=== PATIENT | female | born 1960 | race Caucasian/White ===

== ENCOUNTER 2018-03-07 13:29 | Inpatient (IN) ==
[~2018-03-07 13:29] MED LIST: Pantoprazole 40 MG VIAL IVP SCH
[2018-03-07] MEDS ORDERED: 0.9 % Sodium Chloride 1,000 ML IVC ONE (13:56)
--- NOTE | 2018-03-07 14:08 | Emergency Department Note ---
Disposition Clinical Impression: Leucocytosis, Diarrhea, MARTY (acute kidney injury), Lactic acidosis, Colitis Disposition: Admitted As Inpatient Condition: Fair General Adult HPI - General Chief complaint: ED Nausea/Vomiting/Diarrhea Stated complaint: FLu symptoms Time Seen by Provider: 03/07/18 13:39 Source: patient, family - History of Present Illness Pain Scale: 8 - Related Data Home Medications Medication Instructions Recorded Confirmed Aspirin Enteric Coated [Aspirin EC] 81 mg PO DAILY 03/07/18 03/07/18 BuPROPion SR (12 HR) [Wellbutrin 100 mg PO BID 03/07/18 03/07/18 SR] Clopidogrel [Plavix] 75 mg PO DAILY 03/07/18 03/07/18 Lisinopril [Zestril] 5 mg PO DAILY 03/07/18 03/07/18 Lovastatin [Mevacor] 20 mg PO HS 03/07/18 03/07/18 Omeprazole [PriLOSEC] 20 mg PO BIDAC 03/07/18 03/07/18 PARoxetine HCl [Paroxetine HCl] 10 mg PO DAILY 03/07/18 03/07/18 hydroCHLOROthiazide 25 mg PO DAILY 03/07/18 03/07/18 [Hydrochlorothiazide] Allergies Allergy/AdvReac Type Severity Reaction Status Date / Time No Known Allergies Allergy Verified 03/07/18 15:17 Past Medical History - Past Medical History Medical history: Reports: CVA, hyperlipidemia, hypertension Psychiatric history: Reports: anxiety, depression - Social History Smoking Status: Current every day smoker Smokeless Tobacco Status: No Alcohol use: Reports: rarely Drug use: Reports: none Physical Exam - General General appearance: alert Course Vital Signs Temperature 98.8 F 03/07/18 13:32 Pulse Rate 133 03/07/18 13:32 Respiratory Rate 15 03/07/18 13:32 Blood Pressure 85/58 03/07/18 13:32 O2 Sat by Pulse Oximetry 93 03/07/18 13:32 Temperature 98.9 F 03/07/18 20:50 Pulse Rate 115 03/07/18 20:50 Respiratory Rate 26 03/07/18 20:50 Blood Pressure 129/69 03/07/18 20:50 O2 Sat by Pulse Oximetry 94 03/07/18 20:50 Oxygen Delivery Oxygen Delivery Room Air Medical Decision Making - Lab Data Result diagrams: 03/07/18 14:00 03/07/18 14:00 Lab Results 03/07/18 03/07/18 03/07/18 Range/Units 14:00 14:00 14:00 WBC 25.8 H (4.3-11.1) K/mcL RBC 4.66 (3.82-4.97) M/mcL Hgb 11.4 L (11.5-15.4) g/dL Hct 35.1 L (35.3-44.9) % MCV 75.3 L (83.0-100.0) fL MCH 24.5 L (28.0-33.3) pg MCHC 32.5 (31.6-35.5) g/dL RDW 16.9 H (11.5-14.5) % Plt Count 356 (140-400) K/mcL MPV 10.9 (9.4-12.4) fL Seg Neutrophils % 70.0 % Band Neutrophils % 18.0 H (0-4) % Lymphocytes % 6.0 % Monocytes % 6.0 % Neutrophils # 22.7 H (1.6-8.9) K/mcL Lymphocytes # 1.6 (0.6-4.6) K/mcL Monocytes # 1.6 H (0.0-1.3) K/mcL Reactive Lymphocytes Present A (Not Present) Platelet Estimate Normal (Normal) PT (9.4-12.1) Seconds INR APTT (26.0-36.0) Seconds Sodium 131 L (136-145) mEq/L Potassium 3.7 (3.5-5.1) mEq/L Chloride 100 (98-107) mEq/L Carbon Dioxide 20 L (23-29) mEq/L BUN 18 (6-20) mg/dL Creatinine 1.67 H (0.60-1.20) mg/dL Est GFR ( Amer) 38 L (> 60) Est GFR (Non-Af Amer) 32 L (> 60) BUN/Creatinine Ratio 11 (6-26) Glucose 297 H (70-105) mg/dL Calculated Osmolality 285 (280-300) Lactic Acid 3.7 H (0.5-2.2) mmol/L Calcium 9.2 (8.6-10.3) mg/dL Phosphorus (2.7-4.5) mg/dL Magnesium (1.6-2.6) mg/dL Total Bilirubin 0.5 (0.3-1.0) mg/dL AST 33 (13-39) Units/L ALT 42 (7-52) Units/L Alkaline Phosphatase 112 H (34-104) Units/L Troponin I (< 0.04) ng/mL Serum Total Protein 6.2 L (6.4-8.9) g/dL Albumin 3.9 (3.5-5.7) g/dL Globulin 2.3 L (2.4-3.5) g/dL Albumin/Globulin Ratio 1.7 (1.1-2.2) Lipase 18 (11-82) Units/L Urine Color (Yellow) Urine Clarity (Clear) Urine pH (5.0-8.0) pH Units Ur Specific [place] (1.010-1.025) Urine Protein (Neg-Trace) mg/dL Urine Glucose (UA) (Normal) mg/dL Urine Ketones (Negative) mg/dL Urine Blood (Negative) Urine Nitrite (Negative) Urine Bilirubin (Negative) Urine Urobilinogen (Normal) mg/dL Ur Leukocyte Esterase (Negative) Urine Microscopic RBC (0-3) per hpf Urine Microscopic WBC (0-3) per hpf Ur Squamous Epith Cells (None-Few) per lpf Urine Bacteria (None-Few) per hpf Ur Culture Indicated? (NO) 03/07/18 03/07/18 03/07/18 Range/Units 14:00 15:26 15:26 WBC (4.3-11.1) K/mcL RBC (3.82-4.97) M/mcL Hgb (11.5-15.4) g/dL Hct (35.3-44.9) % MCV (83.0-100.0) fL MCH (28.0-33.3) pg MCHC (31.6-35.5) g/dL RDW (11.5-14.5) % Plt Count (140-400) K/mcL MPV (9.4-12.4) fL Seg Neutrophils % % Band Neutrophils % (0-4) % Lymphocytes % % Monocytes % % Neutrophils # (1.6-8.9) K/mcL Lymphocytes # (0.6-4.6) K/mcL Monocytes # (0.0-1.3) K/mcL Reactive Lymphocytes (Not Present) Platelet Estimate (Normal) PT 13.0 H (9.4-12.1) Seconds INR 1.2 APTT 30.2 (26.0-36.0) Seconds Sodium (136-145) mEq/L Potassium (3.5-5.1) mEq/L Chloride (98-107) mEq/L Carbon Dioxide (23-29) mEq/L BUN (6-20) mg/dL Creatinine (0.60-1.20) mg/dL Est GFR ( Amer) (> 60) Est GFR (Non-Af Amer) (> 60) BUN/Creatinine Ratio (6-26) Glucose (70-105) mg/dL Calculated Osmolality (280-300) Lactic Acid (0.5-2.2) mmol/L Calcium (8.6-10.3) mg/dL Phosphorus 3.3 (2.7-4.5) mg/dL Magnesium 1.3 L (1.6-2.6) mg/dL Total Bilirubin (0.3-1.0) mg/dL AST (13-39) Units/L ALT (7-52) Units/L Alkaline Phosphatase (34-104) Units/L Troponin I < 0.03 (< 0.04) ng/mL Serum Total Protein (6.4-8.9) g/dL Albumin (3.5-5.7) g/dL Globulin (2.4-3.5) g/dL Albumin/Globulin Ratio (1.1-2.2) Lipase (11-82) Units/L Urine Color (Yellow) Urine Clarity (Clear) Urine pH (5.0-8.0) pH Units Ur Specific [place] (1.010-1.025) Urine Protein (Neg-Trace) mg/dL Urine Glucose (UA) (Normal) mg/dL Urine Ketones (Negative) mg/dL Urine Blood (Negative) Urine Nitrite (Negative) Urine Bilirubin (Negative) Urine Urobilinogen (Normal) mg/dL Ur Leukocyte Esterase (Negative) Urine Microscopic RBC (0-3) per hpf Urine Microscopic WBC (0-3) per hpf Ur Squamous Epith Cells (None-Few) per lpf Urine Bacteria (None-Few) per hpf Ur Culture Indicated? (NO) 03/07/18 03/07/18 Range/Units 17:40 18:09 WBC (4.3-11.1) K/mcL RBC (3.82-4.97) M/mcL Hgb (11.5-15.4) g/dL Hct (35.3-44.9) % MCV (83.0-100.0) fL MCH (28.0-33.3) pg MCHC (31.6-35.5) g/dL RDW (11.5-14.5) % Plt Count (140-400) K/mcL MPV (9.4-12.4) fL Seg Neutrophils % % Band Neutrophils % (0-4) % Lymphocytes % % Monocytes % % Neutrophils # (1.6-8.9) K/mcL Lymphocytes # (0.6-4.6) K/mcL Monocytes # (0.0-1.3) K/mcL Reactive Lymphocytes (Not Present) Platelet Estimate (Normal) PT (9.4-12.1) Seconds INR APTT (26.0-36.0) Seconds Sodium (136-145) mEq/L Potassium (3.5-5.1) mEq/L Chloride (98-107) mEq/L Carbon Dioxide (23-29) mEq/L BUN (6-20) mg/dL Creatinine (0.60-1.20) mg/dL Est GFR ( Amer) (> 60) Est GFR (Non-Af Amer) (> 60) BUN/Creatinine Ratio (6-26) Glucose (70-105) mg/dL Calculated Osmolality (280-300) Lactic Acid 2.4 H (0.5-2.2) mmol/L Calcium (8.6-10.3) mg/dL Phosphorus (2.7-4.5) mg/dL Magnesium (1.6-2.6) mg/dL Total Bilirubin (0.3-1.0) mg/dL AST (13-39) Units/L ALT (7-52) Units/L Alkaline Phosphatase (34-104) Units/L Troponin I (< 0.04) ng/mL Serum Total Protein (6.4-8.9) g/dL Albumin (3.5-5.7) g/dL Globulin (2.4-3.5) g/dL Albumin/Globulin Ratio (1.1-2.2) Lipase (11-82) Units/L Urine Color Dark Yellow (Yellow) Urine Clarity Clear (Clear) Urine pH 5.5 (5.0-8.0) pH Units Ur Specific [place] 1.016 (1.010-1.025) Urine Protein Trace (Neg-Trace) mg/dL Urine Glucose (UA) 100 H (Normal) mg/dL Urine Ketones Negative (Negative) mg/dL Urine Blood Negative (Negative) Urine Nitrite Negative (Negative) Urine Bilirubin Negative (Negative) Urine Urobilinogen Normal (Normal) mg/dL Ur Leukocyte Esterase Negative (Negative) Urine Microscopic RBC 0-3 (0-3) per hpf Urine Microscopic WBC 3-5 H (0-3) per hpf Ur Squamous Epith Cells Many H (None-Few) per lpf Urine Bacteria None Seen (None-Few) per hpf Ur Culture Indicated? NO (NO) Critical Care Time Critical Care Time: Yes Total Critical Care Time: 45 Attestation: Critical care performed: Time is exclusive of separately billable procedures. Time includes: direct patient care, patient reassessment, coordination of patient care, interpretation of data (laboratory data, radiology data, and respiratory data), review of patient's medical records, medical consultation and documentation of patient care. Procedures included in critical care time: Procedures excluded from critical care time: Attestation Statement - Attestation Attestation: I examined this patient and my medical decision-making was reviewed with the Resident Physician. I agree with the documented findings, disposition and treatment plan as described except to the extent set forth below. Patient presents to the ED with a chief complaint of not feeling well. Diarrhea. Cough productive of clear phlegm. He vomited once this a.m. Patient states she has not done well since she had a stroke one year ago. She is unable to work. No recent travel. No new exposures. On examination she is hypertensive. Tachycardic. Abdomen soft nontender. Lungs diminished but clear. She satting 91% on room air. Plan. IV hydration. Sepsis protocol. Patient placed on 2 L nasal cannula. Patient will be admitted. Patient identified as likely sepsis at 1405. Patient's wish workup shows elevated white blood cell count. She was started on broad-spectrum antibiotics suspecting a respiratory source. Chest x-ray did not show an obvious infiltrate. We did a CT chest abdomen pelvis. She does have a mild colitis. Patient received 3 L of normal saline. Blood pressures improved. She feels better. She is admitted to medicine. Chest X-Ray 03/07/18 13:59 IMPRESSION: Subtle irregular nodular density of the left upper lobe is partially obscured by overlying osseous structures. Cannot exclude underlying nodule or evolving infiltrate in this location. CT correlation recommended. D/ / 03/07/2018 16:48:42 Samir Prince MD / [place] Interpreting Provider: Samir Prince MD Abdomen/Pelvis CT 03/07/18 16:38 IMPRESSION: 1. No acute abnormality of the chest. 2. Severe hepatic steatosis. 3. Small bilateral calculi. No obstructive uropathy. 4. Scattered colonic diverticulosis with mild wall thickening of the transverse colon and questionable areas of minimal inflammation along the left colon. Mild colitis cannot be excluded. 5. Small fat-containing left epigastric hernia with mild inflammation. D/ / Dallas Cheema MD / Dallas Cheema MD Interpreting Provider: Dallas Cheema MD Chest CT 03/07/18 16:38
[2018-03-07] MEDS ORDERED: Ondansetron 4 MG/2 ML VIAL IVP ONE (14:17)
[2018-03-07 14:18] LABS: Hematocrit 35.1 % (35.3-44.9); Hemoglobin 11.4 g/dL (11.5-15.4); Mean Corpuscular HGB Conc 32.5 g/dL (31.6-35.5); Mean Corpuscular Hemoglobin 24.5 pg (28.0-33.3); Mean Corpuscular Volume 75.3 fL (83.0-100.0); Mean Platelet Volume 10.9 fL (9.4-12.4); Platelet Count 356 K/mcL (140-400); Red Blood Count 4.66 M/mcL (3.82-4.97); Red Cell Distribution Width 16.9 % (11.5-14.5)
--- NOTE | 2018-03-07 14:20 | Emergency Department Note ---
Disposition Clinical Impression: MARTY (acute kidney injury), Lactic acidosis, Colitis Leucocytosis Qualifiers: Leukocytosis type: unspecified Qualified Code(s): D72.829 - Elevated white blood cell count, unspecified Diarrhea Qualifiers: Diarrhea type: unspecified type Qualified Code(s): R19.7 - Diarrhea, unspecified Disposition: Admitted As Inpatient Condition: Fair Time of Disposition: 19:36 General Adult HPI - General Chief complaint: ED Nausea/Vomiting/Diarrhea Stated complaint: FLu symptoms Time Seen by Provider: 03/07/18 13:39 Source: patient, family Limitations: no limitations Nursing Notes Reviewed: Yes Vital Signs Reviewed: Yes - History of Present Illness HPI Narrative: Patient is a 57-year-old female presenting with nausea, vomiting, diarrhea with generalized weakness. Past medical history of COPD, hypertension, hyperlipidemia and CVA. Patient states that she began having symptoms 3 days ago with nausea, diarrhea generalized aches and chills. She states this is progressively gotten worse over the past 3 days with continued diarrhea and nausea. She states that this morning she had one episode of vomiting, nonbilious and non-bloody. She states that she has had no hematochezia or melena. She states that she has had decreased oral intake and has had anorexia over the past few days. Per her in the room, patient states that she has been feeling warm over the past few days but has not taken temperature. Patient has had no recent antibiotic use, no recent illness. She does have chronic cough, which has continued, no change in sputum production. No urinary symptoms. She denies any abdominal pain today. She denies chest pain or short of breath. Pain Scale: 8 - Related Data Home Medications Medication Instructions Recorded Confirmed Aspirin Enteric Coated [Aspirin EC] 81 mg PO DAILY 03/07/18 03/07/18 BuPROPion SR (12 HR) [Wellbutrin 100 mg PO BID 03/07/18 03/07/18 SR] Clopidogrel [Plavix] 75 mg PO DAILY 03/07/18 03/07/18 Lisinopril [Zestril] 5 mg PO DAILY 03/07/18 03/07/18 Lovastatin [Mevacor] 20 mg PO HS 03/07/18 03/07/18 Omeprazole [PriLOSEC] 20 mg PO BIDAC 03/07/18 03/07/18 PARoxetine HCl [Paroxetine HCl] 10 mg PO DAILY 03/07/18 03/07/18 hydroCHLOROthiazide 25 mg PO DAILY 03/07/18 03/07/18 [Hydrochlorothiazide] Allergies Allergy/AdvReac Type Severity Reaction Status Date / Time No Known Allergies Allergy Verified 03/07/18 15:17 All systems ED: reviewed and negative except as stated. Review of Systems: As Per HPI Constitutional: Reports: chills. Denies: fever, weakness ENT ED: Denies: congestion Cardiovascular: Denies: chest pain, palpitations, dyspnea on exertion, syncope Respiratory: Reports: cough. Denies: dyspnea, wheezes, hemoptysis, sputum production Gastrointestinal: Reports: nausea, vomiting, diarrhea. Denies: abdominal pain, constipation, hematemesis, melena, hematochezia Genitourinary: Denies: urgency, dysuria, frequency, hematuria Musculoskeletal: Denies: back pain Integumentary: Denies: rash Neurological: Reports: weakness. Denies: headache, numbness, paresthesias, confusion Endocrine: Reports: fatigue Past Medical History - Past Medical History Medical history: Reports: CVA, hyperlipidemia, hypertension Psychiatric history: Reports: anxiety, depression - Social History Smoking Status: Current every day smoker Smokeless Tobacco Status: No Alcohol use: Reports: rarely Drug use: Reports: none Physical Exam - General Limitations: no limitations General appearance: alert - Head Head exam: atraumatic, normocephalic - Eye Eye exam: Present: normal appearance, PERRL, EOMI, other (Left eye efferent defect) - ENT ENT exam: normal exam, normal oropharynx, mucous membranes moist - Neck Neck exam: Present: normal inspection, full ROM, trachea midline - Chest Chest inspection: Present: normal inspection, symmetric chest wall rise - Respiratory Respiratory exam: Present: normal lung sounds bilaterally - Cardiovascular Cardiovascular exam: Present: normal rhythm, tachycardia - Abdominal Exam Abdominal exam: Present: soft, Non-Tender. Absent: tenderness, distention, guarding, rebound, rigidity - Extremities Exam Extremities exam: Present: normal inspection, full ROM. Absent: tenderness, pedal edema - Expanded Lower Extremity Exam Hip/Pelvis exam: Present: normal inspection, full ROM Neurovascular/Tendon exam: Absent: motor deficit, sensory deficit, tendon deficit - Back Exam Back exam: Present: normal inspection, full ROM. Absent: tenderness - Neurological Exam Neurological exam: Present: alert, oriented X3, CN II-XII intact - Psychiatric Psychiatric exam: Present: normal affect, normal mood Course Course Narrative: Patient is a 57-year-old female presenting with weakness, nausea, vomiting and diarrhea. We will order CBC, BMP, troponin, EKG, chest x-ray, urinalysis, influenza swab at this point in time. We will give Zofran for nausea at this time. Denies pain at this time. We will obtain blood cultures. Vital Signs Temperature 98.8 F 03/07/18 13:32 Pulse Rate 133 03/07/18 13:32 Respiratory Rate 15 03/07/18 13:32 Blood Pressure 85/58 03/07/18 13:32 O2 Sat by Pulse Oximetry 93 03/07/18 13:32 Temperature 98.9 F 03/07/18 20:50 Pulse Rate 115 03/07/18 20:50 Respiratory Rate 26 03/07/18 20:50 Blood Pressure 129/69 03/07/18 20:50 O2 Sat by Pulse Oximetry 94 03/07/18 20:50 Oxygen Delivery Oxygen Delivery Room Air Medical Decision Making - [facility] Narrative Medical decision making narrative: Patient is a 57-year-old female presenting with nausea, vomiting and diarrhea. Patient states symptoms began 3 days ago and previously gotten worse, has had multiple episodes of nonbilious nonbloody diarrhea. Had one episode of vomiting earlier today. Continues to have nausea. No abdominal pain. No chest pain or shortness of breath. Patient was seen and examined on arrival. Patient is tachycardic with heart rate in the 120s, pulse ox is 91%, was placed on 2 L nasal cannula, repeat pulse ox was 98%. Blood pressure is 89/70 at bedside, we will go ahead and start 1 L of fluids at this time. Patient blood work did come back showing elevated white count it leukocytosis of 25.6 with a left shift, hyponatremic at 131, lactic acid was elevated at 3.7. She also had elevated creatinine 1.67 history of kidney disease. At this point in time, did start patient on sepsis protocol with increased fluidsat rate of 30 cc/kg, blood cultures were ordered. Patient was started on broad-spectrum antibiotics vancomycin, azithromycin and Zosyn. Influenza swab was negative. Chest x-ray showed stable right middle lobe nodule, however cannot rule out opacity. CT of the chest, abdomen and pelvis were ordered. CT of the abdomen showed no acute abdomen around the chest, did show severe hepatic steatosis, unchanged from previous, there are small bilateral calculi. Nonobstructive. There is also note of scattered clonic diverticulosis with mild wall thickening of the transverse colon initial minimal inflammation along the left colon possible mild colitis. Also small fat-containing left epigastric hernia but not employed inflammation. Did discuss these results with the patient. Urinalysis is negative for acute infection. Discussed the findings and disposition with the patient. At this point in time, we will admit patient for further recommendations and evaluation. With leukocytosis, MARTY and colitis. At this point in time, patient has been started on sepsis protocol fluids, broad- spectrum antibiotics and blood cultures 2 have been drawn. Upon further evaluation and, conversation with hospitalist, patient has been requested to be admitted to the ICU for further evaluation. Did request Flagyl 500 at this time. There was mention of possible central line placement in the emergency department. This was discussed with my attending. Patient was reevaluated, blood pressure of 88/70s that was input into the computer was incorrect, did discuss with nursing. Repeat blood pressure while in the room was 115/57. Patient is currently finished with 3 L currently starting on her fourth liter. In discussion with my attending, as well as reevaluating the patient, do not feel as if the patient needs central line placement or ICU placement at this point in time. Patient continuing to respond positively to fluid resuscitation. At this point in time, we will hospitalist to discuss this further. He is in agreement and understanding. At this point in time patient has been admitted and will be placed in ICU at 1937 . - Medical Records Medical records reviewed: Yes I reviewed the patient's medical records. - Lab Data Lab results reviewed: Yes I reviewed the patient's lab results. Result diagrams: 03/07/18 14:00 03/07/18 14:00 Lab Results 03/07/18 03/07/18 03/07/18 Range/Units 14:00 14:00 14:00 WBC 25.8 H (4.3-11.1) K/mcL RBC 4.66 (3.82-4.97) M/mcL Hgb 11.4 L (11.5-15.4) g/dL Hct 35.1 L (35.3-44.9) % MCV 75.3 L (83.0-100.0) fL MCH 24.5 L (28.0-33.3) pg MCHC 32.5 (31.6-35.5) g/dL RDW 16.9 H (11.5-14.5) % Plt Count 356 (140-400) K/mcL MPV 10.9 (9.4-12.4) fL Seg Neutrophils % 70.0 % Band Neutrophils % 18.0 H (0-4) % Lymphocytes % 6.0 % Monocytes % 6.0 % Neutrophils # 22.7 H (1.6-8.9) K/mcL Lymphocytes # 1.6 (0.6-4.6) K/mcL Monocytes # 1.6 H (0.0-1.3) K/mcL Reactive Lymphocytes Present A (Not Present) Platelet Estimate Normal (Normal) PT (9.4-12.1) Seconds INR APTT (26.0-36.0) Seconds Sodium 131 L (136-145) mEq/L Potassium 3.7 (3.5-5.1) mEq/L Chloride 100 (98-107) mEq/L Carbon Dioxide 20 L (23-29) mEq/L BUN 18 (6-20) mg/dL Creatinine 1.67 H (0.60-1.20) mg/dL Est GFR ( Amer) 38 L (> 60) Est GFR (Non-Af Amer) 32 L (> 60) BUN/Creatinine Ratio 11 (6-26) Glucose 297 H (70-105) mg/dL Est Mean Plasma Glucose mg/dl Hemoglobin A1c ( - 5.6) % Calculated Osmolality 285 (280-300) Lactic Acid 3.7 H (0.5-2.2) mmol/L Calcium 9.2 (8.6-10.3) mg/dL Phosphorus (2.7-4.5) mg/dL Magnesium (1.6-2.6) mg/dL Total Bilirubin 0.5 (0.3-1.0) mg/dL AST 33 (13-39) Units/L ALT 42 (7-52) Units/L Alkaline Phosphatase 112 H (34-104) Units/L Troponin I (< 0.04) ng/mL Serum Total Protein 6.2 L (6.4-8.9) g/dL Albumin 3.9 (3.5-5.7) g/dL Globulin 2.3 L (2.4-3.5) g/dL Albumin/Globulin Ratio 1.7 (1.1-2.2) Lipase 18 (11-82) Units/L Urine Color (Yellow) Urine Clarity (Clear) Urine pH (5.0-8.0) pH Units Ur Specific Gillett (1.010-1.025) Urine Protein (Neg-Trace) mg/dL Urine Glucose (UA) (Normal) mg/dL Urine Ketones (Negative) mg/dL Urine Blood (Negative) Urine Nitrite (Negative) Urine Bilirubin (Negative) Urine Urobilinogen (Normal) mg/dL Ur Leukocyte Esterase (Negative) Urine Microscopic RBC (0-3) per hpf Urine Microscopic WBC (0-3) per hpf Ur Squamous Epith Cells (None-Few) per lpf Urine Bacteria (None-Few) per hpf Ur Culture Indicated? (NO) 03/07/18 03/07/18 03/07/18 Range/Units 14:00 14:00 15:26 WBC (4.3-11.1) K/mcL RBC (3.82-4.97) M/mcL Hgb (11.5-15.4) g/dL Hct (35.3-44.9) % MCV (83.0-100.0) fL MCH (28.0-33.3) pg MCHC (31.6-35.5) g/dL RDW (11.5-14.5) % Plt Count (140-400) K/mcL MPV (9.4-12.4) fL Seg Neutrophils % % Band Neutrophils % (0-4) % Lymphocytes % % Monocytes % % Neutrophils # (1.6-8.9) K/mcL Lymphocytes # (0.6-4.6) K/mcL Monocytes # (0.0-1.3) K/mcL Reactive Lymphocytes (Not Present) Platelet Estimate (Normal) PT 13.0 H (9.4-12.1) Seconds INR 1.2 APTT 30.2 (26.0-36.0) Seconds Sodium (136-145) mEq/L Potassium (3.5-5.1) mEq/L Chloride (98-107) mEq/L Carbon Dioxide (23-29) mEq/L BUN (6-20) mg/dL Creatinine (0.60-1.20) mg/dL Est GFR ( Amer) (> 60) Est GFR (Non-Af Amer) (> 60) BUN/Creatinine Ratio (6-26) Glucose (70-105) mg/dL Est Mean Plasma Glucose 206 mg/dl Hemoglobin A1c 8.8 H ( - 5.6) % Calculated Osmolality (280-300) Lactic Acid (0.5-2.2) mmol/L Calcium (8.6-10.3) mg/dL Phosphorus (2.7-4.5) mg/dL Magnesium (1.6-2.6) mg/dL Total Bilirubin (0.3-1.0) mg/dL AST (13-39) Units/L ALT (7-52) Units/L Alkaline Phosphatase (34-104) Units/L Troponin I < 0.03 (< 0.04) ng/mL Serum Total Protein (6.4-8.9) g/dL Albumin (3.5-5.7) g/dL Globulin (2.4-3.5) g/dL Albumin/Globulin Ratio (1.1-2.2) Lipase (11-82) Units/L Urine Color (Yellow) Urine Clarity (Clear) Urine pH (5.0-8.0) pH Units Ur Specific Gillett (1.010-1.025) Urine Protein (Neg-Trace) mg/dL Urine Glucose (UA) (Normal) mg/dL Urine Ketones (Negative) mg/dL Urine Blood (Negative) Urine Nitrite (Negative) Urine Bilirubin (Negative) Urine Urobilinogen (Normal) mg/dL Ur Leukocyte Esterase (Negative) Urine Microscopic RBC (0-3) per hpf Urine Microscopic WBC (0-3) per hpf Ur Squamous Epith Cells (None-Few) per lpf Urine Bacteria (None-Few) per hpf Ur Culture Indicated? (NO) 03/07/18 03/07/18 03/07/18 Range/Units 15:26 17:40 18:09 WBC (4.3-11.1) K/mcL RBC (3.82-4.97) M/mcL Hgb (11.5-15.4) g/dL Hct (35.3-44.9) % MCV (83.0-100.0) fL MCH (28.0-33.3) pg MCHC (31.6-35.5) g/dL RDW (11.5-14.5) % Plt Count (140-400) K/mcL MPV (9.4-12.4) fL Seg Neutrophils % % Band Neutrophils % (0-4) % Lymphocytes % % Monocytes % % Neutrophils # (1.6-8.9) K/mcL Lymphocytes # (0.6-4.6) K/mcL Monocytes # (0.0-1.3) K/mcL Reactive Lymphocytes (Not Present) Platelet Estimate (Normal) PT (9.4-12.1) Seconds INR APTT (26.0-36.0) Seconds Sodium (136-145) mEq/L Potassium (3.5-5.1) mEq/L Chloride (98-107) mEq/L Carbon Dioxide (23-29) mEq/L BUN (6-20) mg/dL Creatinine (0.60-1.20) mg/dL Est GFR ( Amer) (> 60) Est GFR (Non-Af Amer) (> 60) BUN/Creatinine Ratio (6-26) Glucose (70-105) mg/dL Est Mean Plasma Glucose mg/dl Hemoglobin A1c ( - 5.6) % Calculated Osmolality (280-300) Lactic Acid 2.4 H (0.5-2.2) mmol/L Calcium (8.6-10.3) mg/dL Phosphorus 3.3 (2.7-4.5) mg/dL Magnesium 1.3 L (1.6-2.6) mg/dL Total Bilirubin (0.3-1.0) mg/dL AST (13-39) Units/L ALT (7-52) Units/L Alkaline Phosphatase (34-104) Units/L Troponin I (< 0.04) ng/mL Serum Total Protein (6.4-8.9) g/dL Albumin (3.5-5.7) g/dL Globulin (2.4-3.5) g/dL Albumin/Globulin Ratio (1.1-2.2) Lipase (11-82) Units/L Urine Color Dark Yellow (Yellow) Urine Clarity Clear (Clear) Urine pH 5.5 (5.0-8.0) pH Units Ur Specific Gillett 1.016 (1.010-1.025) Urine Protein Trace (Neg-Trace) mg/dL Urine Glucose (UA) 100 H (Normal) mg/dL Urine Ketones Negative (Negative) mg/dL Urine Blood Negative (Negative) Urine Nitrite Negative (Negative) Urine Bilirubin Negative (Negative) Urine Urobilinogen Normal (Normal) mg/dL Ur Leukocyte Esterase Negative (Negative) Urine Microscopic RBC 0-3 (0-3) per hpf Urine Microscopic WBC 3-5 H (0-3) per hpf Ur Squamous Epith Cells Many H (None-Few) per lpf Urine Bacteria None Seen (None-Few) per hpf Ur Culture Indicated? NO (NO) - Radiology Data Radiology results reviewed: Yes I reviewed the patient's radiology results. Chest X-Ray 03/07/18 13:59 IMPRESSION: Subtle irregular nodular density of the left upper lobe is partially obscured by overlying osseous structures. Cannot exclude underlying nodule or evolving infiltrate in this location. CT correlation recommended. D/ / 03/07/2018 16:48:42 Samir Prince MD / [facility] Interpreting Provider: Samir Prince MD Abdomen/Pelvis CT 03/07/18 16:38 IMPRESSION: 1. No acute abnormality of the chest. 2. Severe hepatic steatosis. 3. Small bilateral calculi. No obstructive uropathy. 4. Scattered colonic diverticulosis with mild wall thickening of the transverse colon and questionable areas of minimal inflammation along the left colon. Mild colitis cannot be excluded. 5. Small fat-containing left epigastric hernia with mild inflammation. D/ / Dallas Cheema MD / Dallas Cheema MD Interpreting Provider: Dallas Cheema MD Chest CT 03/07/18 16:38 IMPRESSION: 1. No acute abnormality of the chest. 2. Severe hepatic steatosis. 3. Small bilateral calculi. No obstructive uropathy. 4. Scattered colonic diverticulosis with mild wall thickening of the transverse colon and questionable areas of minimal inflammation along the left colon. Mild colitis cannot be excluded. 5. Small fat-containing left epigastric hernia with mild inflammation. D/ / Dallas Cheema MD / Dallas Cheema MD Interpreting Provider: Dallas Cheema MD Bo - Bo Situation: Demographics, MOA Background: Presenting Complaint, Relevant PMH, Meds, & Allergies Assessment: Vital Signs, Course and respsone to treatment, Exam Concerns, Patient/Family Expectation, Pertinant Lab Results, Outstanding Labs Recommendation: Barrier(s) to disposition, Recommendation based on pending studies, treatments, or consults Bo Report Given to: Hospitalist Bo Repor Time: 19:30 (accepted)
[2018-03-07 14:31] LABS: Albumin 3.9 g/dL (3.5-5.7); Albumin/Globulin Ratio 1.7 (1.1-2.2); Bilirubin,Total 0.5 mg/dL (0.3-1.0); Calcium 9.2 mg/dL (8.6-10.3); Globulin 2.3 g/dL (2.4-3.5); Potassium 3.7 mEq/L (3.5-5.1); Total Protein 6.2 g/dL (6.4-8.9)
[2018-03-07 14:55] LABS: Lymphocytes # 1.6 K/mcL (0.6-4.6); Monocytes # 1.6 K/mcL (0.0-1.3); Neutrophils # 22.7 K/mcL (1.6-8.9); Reactive Lymphocytes Present (Not Present)
[2018-03-07] MEDS ORDERED: Piperacillin/Tazobactam 3.375 GM in Water for inj. (sterile) 20 ML 20 ML IVP ONE (14:55)
[2018-03-07] MEDS ORDERED: Azithromycin 500 MG in D5% in Water 250 ML IVPB ONE (14:55)
[2018-03-07 14:56] LABS: Platelet Estimate Normal (Normal)
[2018-03-07] MEDS: 0.9 % Sodium Chloride 1,000 ML IVC SCH ×3 (15:23→20:52)
[2018-03-07 15:49] LABS: Activated Partial Thrombo Time 30.2 Seconds (26.0-36.0)
[2018-03-07 15:50] LABS: INR 1.2
[2018-03-07 16:08] LABS: Magnesium 1.3 mg/dL (1.6-2.6); Phosphorous 3.3 mg/dL (2.7-4.5)
[2018-03-07 17:48] LABS: Bilirubin,Urine Negative (Negative); Blood,Urine Negative (Negative); Clarity,Urine Clear (Clear); Color,Urine Dark Yellow (Yellow); Glucose,Urine (UA) 100 mg/dL (Normal); Ketones,Urine Negative (Negative); Leukocyte Esterase,Urine Negative (Negative); Nitrite,Urine Negative (Negative); PH,Urine 5.5 pH Units (5.0-8.0); Protein,Urine Trace mg/dL (Neg-Trace); Specific Gravity,Urine 1.016 (1.010-1.025); Urobilinogen,Urine Normal (Normal)
[2018-03-07 17:49] LABS: Bacteria,Urine None Seen per hpf (None-Few); RBC,Urine 0-3 per hpf (0-3); Squamous Epithelial Cell,Urine Many per lpf (None-Few)
[2018-03-07] MEDS ORDERED: metroNIDAZOLE 500 MG TABLET PO ONE (19:20)
--- NOTE | 2018-03-07 19:47 | Internal Med History&Physical ---
Date of Encounter: 03/07/18 Time of Encounter: 19:47 Internal Medicine - H&P: HPI Chief complaint: Diarrhea Admitted From: Home History of present illness: Ms. Bloom is a 57 year old female with a PMH of HTN, HLD, CVA without residual deficits, and tobacco dependence who presented from home c/o productive cough, chills, nausea, vomiting x1, and diarrhea x20 for the past 2 days. Patient reports inability to go to work today due to severity of current symptoms. Patient denies associated fever, CP, SOB, abdominal pain, dysuria, hematemesis, hematochezia, melana, recent travel, camping, or recent antibiotic use. Patient reports feeling improved after IVF in the ED and BP has improved from 79/58 to 129/69. Of note, patient takes Omeprazole and admits recent exposure to sick patients during 's recent month long hospitalization. Past Med Surg Social Fam HX - Past Medical History Medical history: CVA, hyperlipidemia, hypertension Psychiatric history: anxiety, depression - Past Surgical History Surgical History: , cholecystectomy Additional surgical history: PEG tube reversal 2017 - Social History Smoking Status: Current every day smoker Packs per day: 1.5 Smokeless Tobacco Status: No Alcohol use: rarely Drug use: none Occupational status: employed Current living situation: Home, With Family Activity Level: Independent ambulation Recent Out of Country Travel Within the Last 8 Weeks: No Exposure or Possible Exposure to Illness During Travel: No - Family History Father Living Status: Hx Family Cardiac Disorders: Yes (ND) Mother Living Status: Hx Family Cancer: Yes (Breast, lung) Brother Hx Family Cardiac Disorders: Yes (CABG) Internal Medicine - H&P: Meds Aspirin Enteric Coated [Aspirin EC] 81 mg PO DAILY 03/07/18 [History] BuPROPion SR (12 HR) [Wellbutrin SR] 100 mg PO BID 03/07/18 [History] Clopidogrel [Plavix] 75 mg PO DAILY 03/07/18 [History] Lisinopril [Zestril] 5 mg PO DAILY 03/07/18 [History] Lovastatin [Mevacor] 20 mg PO HS 03/07/18 [History] Omeprazole [PriLOSEC] 20 mg PO BIDAC 03/07/18 [History] PARoxetine HCl [Paroxetine HCl] 10 mg PO DAILY 03/07/18 [History] hydroCHLOROthiazide [Hydrochlorothiazide] 25 mg PO DAILY 03/07/18 [History] 3 Allergy/AdvReac Type Severity Reaction Status Date / Time No Known Allergies Allergy Verified 03/07/18 15:17 All Systems PM: A 10-system review of systems was performed and is negative for pertinent findings except as documented above in the HPI. - Constitutional Constitutional: anorexia, chills, fatigue, lethargy, malaise, weakness, no fever (s), no weight gain, no weight loss - EENT Eyes: no blurry vision, no change in vision Nose, mouth and throat: dry mouth, no nasal congestion, no sinus pain - Cardiovascular Cardiovascular ROS IM: edema, lightheadedness, palpitations, no chest pain, no dyspnea - Respiratory Respiratory: cough, excessive phlegm production (clear), no dyspnea, no wheezing , no chest congestion, no change in phlegm color - Gastrointestinal Gastrointestinal: diarrhea, loose stools, nausea, vomiting, no abdominal pain, no constipation, no cramping, no fecal incontinence, no heartburn, no hematemesis, no hematochezia, no melena - Genitourinary Genitourinary: no dysuria, no flank pain, no urinary frequency, no urinary urgency - Musculoskeletal Musculoskeletal ROS IM: muscle cramps (legs), no back pain - Integumentary Integumentary IM: no erythema, no new lesions, no rash - Neurological Neurological ROS: dizziness, weakness, no focal weakness, no frequent falls, no headache(s), no numbness, no paresthesias, no tingling - Psychiatric Psychiatric: no anxiety, no depression - Endocrine Endocrine IM: fatigue, no polyphagia, no polyuria - Hematologic/Lymphatic Hematologic/Lymphatic: no easy bleeding, no easy bruising - Constitutional Vitals: Temp Pulse Resp BP Pulse Ox 99.6 F 110 16 110/70 94 03/07/18 14:25 03/07/18 19:06 03/07/18 19:06 03/07/18 19:06 03/07/18 19:06 General appearance: Present: cooperative, A&O X 3, no acute distress, answers questions appropriately Exam: flat affect - Head Head exam: Present: atraumatic, normocephalic - Eye Eye exam: Present: EOMI, conjuntiva pink, sclera anicteric - ENT ENT exam: Present: mucous membranes dry, normal oropharynx - Neck Neck exam general surgery: Present: supple, trachea midline. Absent: lymphadenopathy - Respiratory Respiratory exam: Present: CTAB. Absent: accessory muscle use, rales, rhonchi, wheezes - Cardiovascular Cardiovascular exam: Present: RRR, +S1, +S2. Absent: diastolic murmur, gallop, rubs, systolic murmur - GI/Abdominal GI/Abdominal exam: Present: normal bowel sounds, soft, no peritoneal signs. Absent: distended, tenderness - Extremities Exam Extremities exam: Present: warm, radial pulses palpable and symmetrical. Absent : calf tenderness, cyanotic, pedal edema - Back Exam Back exam: Present: normal inspection. Absent: CVA tenderness (L), CVA tenderness (R), paraspinal tenderness, tenderness - Neurological Exam Neurological exam: Present: alert, CN II-XII intact, oriented X3, no focal deficits. Absent: facial droop, speech deficit - Psychiatric Psychiatric exam: Present: flat affect (poor eye contact), normal mood - Skin Skin exam: Present: dry, intact, normal color, warm Internal Med - H&P Results - Labs CBC & Chem 7: 03/07/18 14:00 03/07/18 14:00 - Impressions ITS Impressions Chest X-Ray 03/07/18 13:59 IMPRESSION: Subtle irregular nodular density of the left upper lobe is partially obscured by overlying osseous structures. Cannot exclude underlying nodule or evolving infiltrate in this location. CT correlation recommended. D/ / 03/07/2018 16:48:42 Samir Prince MD / earnold Interpreting Provider: Samir Prince MD Abdomen/Pelvis CT 03/07/18 16:38 IMPRESSION: 1. No acute abnormality of the chest. 2. Severe hepatic steatosis. 3. Small bilateral calculi. No obstructive uropathy. 4. Scattered colonic diverticulosis with mild wall thickening of the transverse colon and questionable areas of minimal inflammation along the left colon. Mild colitis cannot be excluded. 5. Small fat-containing left epigastric hernia with mild inflammation. D/ / Dallas Cheema MD / Dallas Cheema MD Interpreting Provider: Dallas Cheema MD Chest CT 03/07/18 16:38 IMPRESSION: 1. No acute abnormality of the chest. 2. Severe hepatic steatosis. 3. Small bilateral calculi. No obstructive uropathy. 4. Scattered colonic diverticulosis with mild wall thickening of the transverse colon and questionable areas of minimal inflammation along the left colon. Mild colitis cannot be excluded. 5. Small fat-containing left epigastric hernia with mild inflammation. D/ / Dallas Cheema MD / Dallas Cheema MD Interpreting Provider: Dallas Cheema MD - Assessment and plan (1) Severe sepsis Current Visit: Yes Status: Acute Assessment and plan: Patient met severe sepsis criteria with leukocytosis WBC 25.8, tachycardia HR 133, respiratoy rate 22, lactic acidosis 3.7, signs of end organ damage MARTY, hypotension 79/58 BP improved after 3L sepsis IVF bolus CXR revealed possible KIRSTEN infiltrate, CT chest revealed no acute abnormality of the chest Patient started on empiric Vancomycin, Zosyn, and Azithromycin in the ED Blood cultures pending Sputum cultures pending MRSA screen pending UA negative Repeat lactic acid 2.4, trend lactic acid level De-escalate antibiotics based on culture results (2) Colitis Current Visit: Yes Status: Acute Assessment and plan: Patient with suspected C. diff colitis given very elevated WBC 25.8 and up 10 loose stools per day, takes Omeprazole, and recent exposure to sick patients during 's recent month long hospitalization CT abd/plv without contrast revealed scattered colonic diverticulosis with mild wall thickening of the transverse colon and questionable areas of minimal inflammation along the left colon, and small fat-containing left epigastric hernia with mild inflammation. Mild colitis cannot be excluded. GI panel pending Started on Vanc 125mg PO QID for 10 days Repeat WBC in AM Contact precautions (3) Hepatic steatosis Current Visit: Yes Status: Acute Assessment and plan: CT abd/plv without contrast revealed severe hepatic steatosis LFTs show AST 33, ALT 42, and alk phos 112, lipase 18 Continue lifestyle modification and outpatient follow up (4) MARTY (acute kidney injury) Current Visit: Yes Status: Acute Assessment and plan: Likely pre-renal MARTY due to dehydration, severe sepsis/ renal hypoperfusion/ hypotension BP down to 79/58, diarrhea/ colitis, and HCTZ diuretic/ ACEI use Hold home ACEI Discontinue HCTZ Patient given 3L IVF in ED, continue NS at 75 cc/hr Avoid nephrotoxins Continue monitoring (5) Hypomagnesemia Current Visit: Yes Status: Acute Assessment and plan: Supplement Mag Continue monitoring (6) HTN (hypertension) Current Visit: Yes Status: Chronic Assessment and plan: Hold home antihypertensive medications in the setting of hypotension/ sever sepsis Qualifiers: Hypertension type: essential hypertension Qualified Code(s): I10 - Essential (primary) hypertension (7) HLD (hyperlipidemia) Current Visit: Yes Status: Chronic Assessment and plan: Continue home statin Qualifiers: Hyperlipidemia type: unspecified Qualified Code(s): E78.5 - Hyperlipidemia , unspecified (8) History of CVA (cerebrovascular accident) without residual deficits Current Visit: No Status: Chronic Assessment and plan: Continue home Aspirin (9) Anxiety with depression Current Visit: Yes Status: Chronic Assessment and plan: Continue home meds (10) Tobacco dependence Current Visit: Yes Status: Chronic Assessment and plan: Tobacco cessation discussed Patient declines need for Nicotine patch at this time (11) Obesity (BMI 30.0-34.9) Current Visit: No Status: Chronic Assessment and plan: BMI 33.9, lifestyle modification (12) DVT prophylaxis Current Visit: Yes Status: Acute Assessment and plan: Heparin subcutaneous TID - Time Spent With Patient Total time spent is greater than 50% in coordination of care (as documented) at patient's floor/unit and/or counseling patient: Sepsis Reassessment Note - Evaluation Current Stage of Sepsis: sepsis Possible Source of Sepsis: GI tract/intra-abdominal - Focused Exam Date of Encounter: 03/07/18 Time of Encounter: 19:01 Vital Signs: Vital Signs Temp Pulse Resp BP Pulse Ox 03/07/18 20:50 98.9 F 115 26 129/69 94 03/07/18 20:46 115 03/07/18 20:09 18 114/59 03/07/18 19:06 110 16 110/70 94 03/07/18 18:07 105 112/63 96 03/07/18 17:30 112 18 106/64 96 03/07/18 16:18 104 16 96/52 99 03/07/18 15:48 103 22 99/58 98 03/07/18 14:25 99.6 F 118 16 82/52 96 03/07/18 13:43 98.8 F 129 15 79/58 91 03/07/18 13:32 98.8 F 133 15 85/58 93 Respiratory Exam: Present: CTA bilaterally Cardiovascular Exam: Present: tachycardia Capillary Refill: < 2 seconds Peripheral Pulse Strength: 3+ normal Peripheral Pulse Location: Radial Skin Exam: normal turgor
[2018-03-07] MEDS ORDERED: Acetaminophen 325 MG TABLET PO PRN (20:19)
[2018-03-07] MEDS ORDERED: Ondansetron 4 MG/2 ML VIAL IVP PRN ×2 (20:19→21:28)
[2018-03-07] MEDS ORDERED: Naloxone 0.4 MG/ML INJ IVP PRN ×2 (20:19→21:28)
[2018-03-07] MEDS ORDERED: Vancomycin Oral Soln 125 MG/2.5 ML UDC PO SCH ×2 (21:00)
[2018-03-07] MEDS ORDERED: 0.9 % Sodium Chloride 1,000 ML IVC SCH ×2 (21:15→21:28)
[2018-03-07] MEDS: *HR* Heparin 5,000 UNIT/ML VIAL SQ SCH (21:49)
[2018-03-07] MEDS ORDERED: *HR* Heparin 5,000 UNIT/ML VIAL SQ SCH (22:00)
[2018-03-07 22:09] LABS: Estimated Average Glucose 206 mg/dl; Hemoglobin A1C 8.8 %
[2018-03-07] MEDS: BuPROPion SR (12 HR) 100 MG TABLET PO SCH (22:53)
[2018-03-07 23:14] LABS: Adenovirus F 40/41 PCR Not detected (Not detect); Astrovirus PCR Not detected (Not detect); C.difficile Toxin A/B by PCR Not detected (Not detect); Campylobacter by PCR DETECTED (Not detect); Cryptosporidium by PCR Not detected (Not detect); Cyclospora cayetanensis PCR Not detected (Not detect); E. coli O157 by PCR Not detected (Not detect); Entamoeba histolytica PCR Not detected (Not detect); Enteroaggregative E.coli(EAEC) Not detected (Not detect); Enteropathogenic E.coli(EPEC) Not detected (Not detect); Enterotoxigenic E.coli (ETEC) Not detected (Not detect); Giardia lamblia PCR Not detected (Not detect); Norovirus GI/GII PCR Not detected (Not detect); Plesiomonas shigelloides PCR Not detected (Not detect); Rotavirus A PCR Not detected (Not detect); Salmonella PCR Not detected (Not detect); Sapovirus PCR Not detected (Not detect); Shig/EnteroinvasiveE coli EIEC Not detected (Not detect); Shigalike tox-prod E coli STEC Not detected (Not detect); Vibrio PCR Not detected (Not detect); Vibrio cholerae PCR Not detected (Not detect); Yersinia enterocolitica PCR Not detected (Not detect)
[2018-03-08 00:29] LABS: Basophils % 0.2 %; Eosinophils # 0.1 K/mcL (0.0-0.6); Eosinophils % 0.3 %; Hematocrit 30.5 % (35.3-44.9); Immature Granulocytes % 0.8 % (0-4); Lymphocytes # 1.9 K/mcL (0.6-4.6); Lymphocytes % 10.4 %; Mean Corpuscular HGB Conc 32.8 g/dL (31.6-35.5); Mean Corpuscular Hemoglobin 25.4 pg (28.0-33.3); Mean Corpuscular Volume 77.6 fL (83.0-100.0); Monocytes # 1.3 K/mcL (0.0-1.3); Monocytes % 7.1 %; Nucleated Red Blood Cells 0.1 /100 WBC (0); Platelet Count 281 K/mcL (140-400); Red Blood Count 3.93 M/mcL (3.82-4.97); Red Cell Distribution Width 16.7 % (11.5-14.5); Segmented Neutrophils % 81.2 %
[2018-03-08 00:44] LABS: BUN/Creatinine Ratio 17 (6-26); Blood Urea Nitrogen 14 mg/dL (6-20); Carbon Dioxide 18 mEq/L (23-29); Chloride 109 mEq/L (98-107); Glucose 132 mg/dL (70-105); Osmolality,Calculated 284 (280-300); Potassium 3.1 mEq/L (3.5-5.1); Sodium 136 mEq/L (136-145); eGFR For Non-African Americans > 60 (> 60)
[2018-03-08] MEDS: Acetaminophen 325 MG TABLET PO PRN (06:22)
[2018-03-08] MEDS: *HR* Heparin 5,000 UNIT/ML VIAL SQ SCH ×3 (06:23→21:29)
[2018-03-08] MEDS ORDERED: Pantoprazole 40 MG VIAL IVP SCH (07:30)
[2018-03-08] MEDS: BuPROPion SR (12 HR) 100 MG TABLET PO SCH ×2 (08:48→21:29)
[2018-03-08] MEDS: Aspirin Enteric Coated 81 MG Tablet PO SCH (08:48)
[2018-03-08] MEDS: Azithromycin 250 MG TABLET PO SCH (08:49)
[2018-03-08] MEDS ORDERED: Vancomycin Oral Soln 125 MG/2.5 ML UDC PO SCH (09:00)
--- NOTE | 2018-03-08 15:09 | Internal Med Progress Note ---
Hospitalist Progress Note - Encounter Date of Encounter: 03/08/18 Time of Encounter: 15:09 - Subjective Interval History: Patient continues to have diarrhea. She is tolerating oral diet. Does have nausea but is well controlled. No abdominal pain. - Exam Vitals: Temp Pulse Resp BP Pulse Ox 98.1 F 93 16 119/78 93 03/08/18 14:56 03/08/18 14:56 03/08/18 14:56 03/08/18 14:56 03/08/18 14:56 Exam: General: Patient is alert, no acute distress, oriented x 3 Respiratory: Good respiratory effort. Normal breath sounds. No wheezing or crackles. Cardiovascular: Regular rate and rhythm. s1 and s2 normal No clicks, rubs, gallops, or murmurs. No pedal edema Abdomen: Abdomen is soft, nontender. Bowel sounds are present Musculoskeletal: Spontaneously moving all extremities Skin: warm, dry, intact. Neuro: Alert oriented x 3 normal cranial nerves, no focal deficits Psych: Patient's affect is normal - Assessment and Plan (1) Colitis Current Visit: Yes Status: Acute Assessment and Plan: Patient still positive for Campylobacter. Continue supportive care. Patient tolerating diet at this time. Continue IV fluids. Patient started on azithromycin. Will complete a 3 day course. (2) MARTY (acute kidney injury) Current Visit: Yes Status: Resolved Assessment and Plan: Resolved now. Creatinine is normal. (3) Severe sepsis Current Visit: Yes Status: Acute Assessment and Plan: Resolving. WBC count is coming down. Due to colitis from Campylobacter. (4) DVT prophylaxis Current Visit: Yes Status: Acute (5) HTN (hypertension) Current Visit: Yes Status: Chronic Assessment and Plan: Blood pressure is well controlled at this time. (6) HLD (hyperlipidemia) Current Visit: Yes Status: Chronic Assessment and Plan: Continue simvastatin (7) History of CVA (cerebrovascular accident) without residual deficits Current Visit: Yes Status: Chronic Assessment and Plan: Continue aspirin, Plavix and Zocor (8) Obesity (BMI 30.0-34.9) Current Visit: Yes Status: Chronic (9) Hypomagnesemia Current Visit: Yes Status: Resolved (10) Anxiety with depression Current Visit: Yes Status: Chronic Assessment and Plan: Continue Paxil and Wellbutrin (11) Tobacco dependence Current Visit: Yes Status: Chronic (12) Hepatic steatosis Current Visit: Yes Status: Acute Assessment and Plan: Chronic. Supportive care. - Time Spent with Patient Total time spent is greater than 50% in coordination of care (as documented) at patient's floor/unit and/or counseling patient: Internal Medicine: Result - Labs CBC & Chem 7: 03/08/18 00:14 03/08/18 00:14 Labs: Short CBC 03/08/18 Range/Units 00:14 WBC 18.5 H (4.3-11.1) K/mcL Hgb 10.0 L (11.5-15.4) g/dL Hct 30.5 L (35.3-44.9) % Plt Count 281 (140-400) K/mcL Neutrophils # 15.0 H (1.6-8.9) K/mcL BMP 03/08/18 00:14 Sodium 136 Potassium 3.1 L Chloride 109 H Carbon Dioxide 18 L BUN 14 Creatinine 0.83 Glucose 132 H Calcium 8.0 L - ABG Interpretation ABG results: PT/INR, D-dimer PT 13.0 Seconds (9.4-12.1) H 03/07/18 15:26 Consult Discharge Plan - Plan Referrals: NONE,PCP [Primary Care Provider] - (5) HTN (hypertension) Qualifiers: Hypertension type: essential hypertension Qualified Code(s): I10 - Essential (primary) hypertension (6) HLD (hyperlipidemia) Qualifiers: Hyperlipidemia type: unspecified Qualified Code(s): E78.5 - Hyperlipidemia, unspecified
--- NOTE | 2018-03-08 17:10 | Electrocardiograph Report ---
[place] [id number] Test Date: 2018-03-07 Pat Name: Quynh Bloom Department: [id number] Room: 3A12 Gender: F Assistant Health Educator: : 1960 Requested By: Patricia Dash Order Number: [id number] Reading MD: Monika Benitez Measurements Intervals [place] Rate: 109 P: 54 MT: 153 QRS: 14 QRSD: 84 T: -35 QT: 337 QTc: 454 Interpretive Statements Sinus tachycardia Low voltage, precordial leads Abnormal R-wave progression, early transition Nonspecific ST and T abnormalities Electronically Signed On 03-08-2018 17:09:01 EDT by Monika Benitez
[2018-03-09] MEDS: Acetaminophen 325 MG TABLET PO PRN (04:08)
[2018-03-09 05:59] LABS: Basophils # 0.1 K/mcL (0.0-0.2); Basophils % 0.6 %; Eosinophils # 0.3 K/mcL (0.0-0.6); Eosinophils % 2.6 %; Hematocrit 30.1 % (35.3-44.9); Hemoglobin 9.5 g/dL (11.5-15.4); Immature Granulocytes % 1.2 % (0-4); Lymphocytes # 2.2 K/mcL (0.6-4.6); Lymphocytes % 22.1 %; Mean Corpuscular HGB Conc 31.6 g/dL (31.6-35.5); Mean Corpuscular Hemoglobin 24.6 pg (28.0-33.3); Mean Platelet Volume 11.1 fL (9.4-12.4); Monocytes # 1.2 K/mcL (0.0-1.3); Neutrophils # 6.1 K/mcL (1.6-8.9); Platelet Count 290 K/mcL (140-400); Red Blood Count 3.86 M/mcL (3.82-4.97); Red Cell Distribution Width 16.8 % (11.5-14.5); Segmented Neutrophils % 61.5 %
[2018-03-09 06:17] LABS: BUN/Creatinine Ratio 17 (6-26); Blood Urea Nitrogen 11 mg/dL (6-20); Calcium 8.7 mg/dL (8.6-10.3); Carbon Dioxide 21 mEq/L (23-29); Chloride 110 mEq/L (98-107); Glucose 151 mg/dL (70-105); Osmolality,Calculated 288 (280-300); Potassium 3.4 mEq/L (3.5-5.1); Sodium 138 mEq/L (136-145); eGFR For Non-African Americans > 60 (> 60)
[2018-03-09] MEDS: *HR* Heparin 5,000 UNIT/ML VIAL SQ SCH (06:29)
[2018-03-09 07:38] VITALS: BP 129/82
[2018-03-09] MEDS: Azithromycin 250 MG TABLET PO SCH (08:11)
[2018-03-09] MEDS: Aspirin Enteric Coated 81 MG Tablet PO SCH (08:11)
[2018-03-09] MEDS: BuPROPion SR (12 HR) 100 MG TABLET PO SCH (08:12)
--- NOTE | 2018-03-09 08:54 | Discharge Summary ---
- NOTES TO OUTPATIENT PROVIDER Notes to Outpatient Provider: Patient was hospitalized here for acute diarrhea. CT scan showed mild colitis. She did have positive SIRS criteria initially. She was started on broad-spectrum antibiotics but her stool studies were positive for Campylobacter. As such she was placed on azithromycin for 3 days. Her symptoms are starting to improve now. She does continue to have diarrhea although it is not as frequent as before. She is clinically stable for discharge. She is encouraged to keep well hydrated and return to ED if symptoms do not resolve within the next week. Orders not resulted at time of discharge: Pending orders 03/07/18 20:19 MRSA Surveillance Screen [MOLMIC] Routine 03/07/18 20:22 Culture,Sputum with Gram Stain [RM] Routine Date of Encounter: 03/09/18 Time of Encounter: 08:52 - Discharge Diagnosis (1) Colitis Priority: Primary Status: Acute (2) MARTY (acute kidney injury) Priority: Secondary Status: Resolved (3) Severe sepsis Priority: Secondary Status: Resolved (4) DVT prophylaxis Priority: Secondary Status: Acute (5) HTN (hypertension) Priority: Secondary Status: Chronic Qualifiers: Hypertension type: essential hypertension Qualified Code(s): I10 - Essential (primary) hypertension (6) HLD (hyperlipidemia) Priority: Secondary Status: Chronic Qualifiers: Hyperlipidemia type: unspecified Qualified Code(s): E78.5 - Hyperlipidemia , unspecified (7) History of CVA (cerebrovascular accident) without residual deficits Priority: Secondary Status: Chronic (8) Obesity (BMI 30.0-34.9) Priority: Secondary Status: Chronic (9) Hypomagnesemia Priority: Secondary Status: Resolved (10) Anxiety with depression Priority: Secondary Status: Chronic (11) Tobacco dependence Priority: Secondary Status: Chronic (12) Hepatic steatosis Priority: Secondary Status: Acute Hospital course: Ms. Bloom is a 57 year old female Patient with history of CVA, hypertension and hyperlipidemia who was hospitalized here for acute diarrhea. CT scan showed mild colitis. She did have positive SIRS criteria initially. She was started on broad-spectrum antibiotics but her stool studies were positive for Campylobacter. As such she was placed on azithromycin for 3 days. Her symptoms are starting to improve now. She does continue to have diarrhea although it is not as frequent as before. She is clinically stable for discharge. She is encouraged to keep well hydrated and return to the ED if her symptoms do not resolve within the next week. Discharge discussed with: patient, family - Time Spent with Patient Total time spent providing and/or coordinating discharge services: Less than 30 minutes (20 min) - Discharge Medications Prescriptions: Lactobacillus Acidophilus [Acidophilus] 1 each PO BID #30 capsule Home Medications: Aspirin Enteric Coated [Aspirin EC] 81 mg PO DAILY 03/07/18 [History] BuPROPion SR (12 HR) [Wellbutrin SR] 100 mg PO BID 03/07/18 [History] Clopidogrel [Plavix] 75 mg PO DAILY 03/07/18 [History] Lisinopril [Zestril] 5 mg PO DAILY 03/07/18 [History] Lovastatin [Mevacor] 20 mg PO HS 03/07/18 [History] Omeprazole [PriLOSEC] 20 mg PO BIDAC 03/07/18 [History] PARoxetine HCl [Paroxetine HCl] 10 mg PO DAILY 03/07/18 [History] hydroCHLOROthiazide [Hydrochlorothiazide] 25 mg PO DAILY 03/07/18 [History] Lactobacillus Acidophilus [Acidophilus] 1 each PO BID #30 capsule 03/09/18 [Rx] Allergies/Adverse Reactions: 3 Allergy/AdvReac Type Severity Reaction Status Date / Time No Known Allergies Allergy Verified 03/07/18 15:17 Date of admission: 03/07/18 19:40 Primary care physician: PCP NONE Discharging clinician: Alonzo Echeverria Anticipated date of discharge: 03/09/18 - Constitutional Vitals: Temp Pulse Resp BP Pulse Ox 97.8 F 85 14 129/82 91 03/09/18 07:30 03/09/18 07:30 03/09/18 07:30 03/09/18 07:30 03/09/18 07:30 General appearance: Present: cooperative, A&O X 3, no acute distress, answers questions appropriately Exam: . - Respiratory Respiratory exam: Present: CTAB. Absent: accessory muscle use, rales, rhonchi, wheezes - Cardiovascular Cardiovascular exam: Present: RRR, +S1, +S2. Absent: diastolic murmur, gallop, rubs, systolic murmur - GI/Abdominal GI/Abdominal exam: Present: normal bowel sounds, soft, no peritoneal signs. Absent: distended, tenderness - Patient Status Disposition: Home, Self-Care Condition: Good Functional capacity at discharge: independent ambulation Overall status at discharge: patient is progressing back to baseline - Discharge Instructions Instructions: Infectious Colitis (GEN) Follow Up With: NONE,PCP [Primary Care Provider] - Additional Instructions: Keep herself well hydrated. If diarrhea does not improve within the next week, return to the ER. He can take loperamide [id number] 4 times daily for diarrhea as needed. - Diet and Activity Activity: increase activity as tolerated Diet: advance to your usual diet
== END 2018-03-09 10:01 | disposition home or self-care (01) | DRG 872 ==
LOC: EMEROOARM 13:29 → ICNU 19:40 → SUATTDRO 19:40 → ICNU 20:09 → 3ANU 22:37
PROVIDERS: ADMIT Pediatrics; ATTEND Internal Medicine